=== PATIENT | male | born 1975 | race Caucasian/White ===

== ENCOUNTER 2020-07-13 16:34 | Emergency (ER) | payer OTHER ==
[~2020-07-13] VITALS: Ht 172.7 cm; Wt 95.3 kg
[2020-07-13] MEDS ORDERED: MELOXICAM15 MG PO (16:42)
[2020-07-13] MEDS ORDERED: METFORMIN HCL500 M3 PO (16:43)
[2020-07-13] MEDS ORDERED: CENTANY30 GM TOP (17:25)
[2020-07-13] MEDS ORDERED: DOXYCYCLINE 10100 MG PO (17:25)
[2020-07-13 18:05] VITALS: BP 169/92
== END 2020-07-13 18:06 | disposition home or self-care (01) ==
LOC: M.ERS 16:34
DX: L02.01 Cutaneous abscess of face (principal); E11.9 Type 2 diabetes mellitus without complications; Z79.84 Long term (current) use of oral hypoglycemic drugs; Z79.899 Other long term (current) drug therapy; Z88.5 Allergy status to narcotic agent; Z88.8 Allergy status to other drugs, medicaments and biological substances